=== PATIENT | female | born 1975 | race Caucasian/White ===

== ENCOUNTER 2016-06-16 15:47 | Outpatient (CLI) | payer BC | END 2016-06-16 15:48 | disposition home or self-care (01) | DX: Z13.1 Encounter for screening for diabetes mellitus (principal); N91.1 Secondary amenorrhea ==

== ENCOUNTER 2020-06-07 06:46 | Outpatient (CLI) | payer OTHER ==
--- NOTE | 2020-06-07 16:45 | Ultrasound Report ---
PROCEDURE: Pelvic w/Transvaginal INDICATIONS: ABDORMAL UTERINE BLEEDING TECHNIQUE: Real-time scanning was performed of the pelvic organs, with image documentation. Additional endovagi nal scanning was necessary due to incomplete visualization of the adnexal and endometrial structures by transabdominal scanning. COMPARISON: None. FINDINGS: No pathologic free abdominal or pelvic fluid. Uterus: Uterus is normal in size at 9.0 x 3.6 x 4.6 cm. The endometrium measures 11.8 mm in combine d thickness. There is a focus of mid fundal subserosal heterogeneous echogenicity measuring 14 x 13 x 9 mm. Ovaria n cysts are noted. Ovaries: Right ovary measures 4.3 x 3.4 x 2.8 cm, volume 21.4 cc. There is a focus of decreased echo genicity measuring 3.2 x 3.0 x 2.2 cm. Left ovary measures 2.1 x 2.0 x 1.8 cm, volume 4.0 cc. IMPRESSION: Focus of heterogeneous echogenicity within the uterus suggestive of fibroid. 2. Right ovarian simple cyst. Reviewed by: Marian Espinoza MD on 06/07/2020 4:43 PM PST Approved by: Marian Espinoza MD on 06/07/2020 4:43 PM PST Station ID: [id number]
== END 2020-06-07 06:47 | disposition home or self-care (01) ==
LOC: DI 06:46
PROVIDERS: ATTEND Nurse Practitioner Family
DX: N93.9 Abnormal uterine and vaginal bleeding, unspecified (principal); N83.291 Other ovarian cyst, right side

== ENCOUNTER 2020-06-24 08:00 | Outpatient (CLI) | payer OTHER ==
[2020-06-24 21:22] LABS: CHLAMYDIA TRACHOMATIS DNA NEGATIVE (NEGATIVE); NEISSERIA GONORRHOEAE DNA NEGATIVE (NEGATIVE); TRICHOMONAS VAGINALIS DNA NEGATIVE (NEGATIVE)
== END 2020-06-24 23:59 | disposition home or self-care (01) ==
LOC: LAB.R 08:00
PROVIDERS: ATTEND Obstetrics & Gynecology
DX: Z11.3 Encounter for screening for infections with a predominantly sexual mode of transmission (principal)
CPT/HCPCS: 87491; 87591; 87661

== ENCOUNTER 2022-11-21 09:25 | Day surgery (SDC) | payer OTHER ==
[2022-11-21] MEDS ORDERED: LACTATED RINGERS 1,000 ML IV ONE ×2 (09:29→11:45)
[2022-11-21 09:49] LABS: HCG UR QUAL NEGATIVE
[2022-11-21] MEDS ORDERED: HYDROmorphone 0.5 MG/0.5 ML SYRINGE IVP PRN ×2 (10:05→10:32)
[2022-11-21] MEDS ORDERED: ATROPINE ABBOJECT 1 MG/10 ML SYRINGE IVP PRN ×2 (10:05→10:32)
[2022-11-21] MEDS ORDERED: ONDANSETRON 4 MG/2 ML VIAL IVP PRN ×2 (10:05→10:32)
[2022-11-21] MEDS ORDERED: fentaNYL 100 MCG/2 ML VIAL IVP PRN ×2 (10:05→10:32)
[2022-11-21] MEDS ORDERED: NALOXONE 0.4 MG/ML VIAL IVP PRN ×2 (10:05→10:32)
[2022-11-21] MEDS ORDERED: MORPHINE 2 MG/ML CARPUJECT IVP PRN (10:05)
[2022-11-21] MEDS ORDERED: ACETAMINOPHEN 1,000 MG/100 ML 1,000 MG/100 ML BAG IV ONE (10:07)
--- NOTE | 2022-11-21 10:09 | HISTORY & PHYSICAL EXAMINATION ---
HPI - Admitted From Admitted from: Direct admit - History Obtained From Records Reviewed: Old records reviewed History obtained from: Patient Exam limitations: No limitations - History of Present Illness HPI Comment/Other: 46yo G0 with LMP 11/21/22 presenting for scheduled endometrial biopsy for heavy menstrual bleeding. She is scheduled for D&C, hysteroscopy, and endometrial abla tion for heavy menstrual bleeding. She changes pads at least every 2 hours during the day and 3h at night. They are heavy with flooding and she is passing clots. She did have a D&C, hysteroscopy with polypectomy 2020. Negative EMC 09/19/22. She also had Mirena IUD 2020 but removed it a few months later. PEL US 06/07/2020 with 9cm uterus, possible 1.4cm subserosal fibroid. TSH 2020 1.61. Normal Pap smear 07/2022. Denies history of blood transfusions or anesthesia reactions. PMH/PSH - Past Medical History Cardiovascular: positive: None Respiratory: positive: None Endocrine/Autoimmune: positive: None GI: positive: None : positive: None HEENT: positive: None Psych: positive: Claustrophobia Musculoskeletal: positive: None Derm: positive: None MRSA Hx?: No - Past Surgical History /[employer]: positive: Other (T&A, D&C polypectomy 2020) Social & Family Hx - Living Situation Living Arrangement: At home - Social History Substance Use and Type: Marijuana, CBD oil / Products - Family History Family History Comment/Other: Mother history melanoma Meds/Allgy - Home Medications Home Medications: Ambulatory Orders Medication Instructions Recorded Confirmed Ibuprofen [Motrin] 600 mg PO Q6H PRN 09/19/22 11/21/22 - Allergies Allergies/Adverse Reactions: Allergies Allergy/AdvReac Type Severity Reaction Status Date / Time latex Allergy Rash Verified 09/19/22 10:54 Exam - Vital Signs Reviewed Vital Signs: Yes Vital Signs: Vital Signs x48h Temp Pulse Resp BP Pulse Ox 11/21/22 09:36 97.2 F L 84 16 152/96 H 98 - Physical Exam General Appearance: positive: No acute distress Eyes Bilateral: positive: EOMI Respiratory: positive: No respiratory distress Abdomen: positive: Non-tender Skin: positive: Color nml Extremities: positive: Non-tender Neurologic/Psychiatric: positive: Oriented x3 Results - Lab Results Other Lab Results: Lab Results x24hrs 11/21/22 Range/Units 09:40 Urine HCG, Qual NEGATIVE Impression/Plan - Problem List Problem List: 46yo G0 with heavy menstrual bleeding - Scheduled for D&C hysteroscopy, endometrial ablation - Reviewed procedures, r/b/a and informed consent obtained - Follow up post op Ablation would be an outpatient procedure with 90% success rate and 30% amenorrhea rate. Goal with this procedure would be to decrease menstrual flow as opposed to achieving amenorrhea. She was counseled that there is an approximate 30% failure rate over 5 years requiring definitive treatment with hysterectomy. Ablation may not regulate the intervals of her bleeding but would likely lighten the amount. She was counseled on the need for contraception in women undergoing ablation. Risks of surgery were discussed including but not limited to risk of bleeding, infection, injury to nearby organs requiring repair (bladder, ureters, bowel, vasculature), deep venous thrombosis or . Risks of blood transfusion were also discussed including but not limited to transfusion reaction or transmission of HIV, Hepatitis B or C.
[2022-11-21] MEDS ORDERED: SILVER NITRATE APPLICATOR TOP ONE (10:10)
[2022-11-21] MEDS ORDERED: KETAMINE 200 MG/20 ML VIAL ONE (10:19)
[2022-11-21] MEDS ORDERED: fentaNYL 100 MCG/2 ML VIAL ONE ×2 (10:19→11:37)
[2022-11-21] MEDS ORDERED: MIDAZOLAM 2 MG/2 ML VIAL ONE (10:19)
[2022-11-21] MEDS ORDERED: PROPOFOL 500 MG/50 ML 500 MG/50 ML VIAL ONE (10:22)
[2022-11-21] MEDS ORDERED: LIDOCAINE 1%-EPI 1:100000 20 ML MDV ONE (10:24)
[2022-11-21] MEDS ORDERED: BUPIVACAINE 0.25% PF 30 ML VIAL ONE (10:24)
[2022-11-21] MEDS ORDERED: ePHEDrine 50 MG/ML VIAL IVP PRN (10:32)
--- NOTE | 2022-11-21 10:32 | ANESTHESIA ---
Pre-Anesthesia VS, & Labs - Diagnosis menorrhagia - Procedure hysteroscopy, myosure, d&c Vital Signs: Temp Pulse Resp BP Pulse Ox O2 Flow Rate 36.2 C L 84 16 152/96 H 98 11/21/22 09:36 11/21/22 09:36 11/21/22 09:36 11/21/22 09:36 11/21/22 09:36 Height: 5 ft 2 in Weight (kg): 89 kg Body Mass Index: 35.9 BMI Classification: Obese - NPO >8 hours - Is Patient ?: No - Lab Results Lab results reviewed: Yes Home Medications and Allergies Active Medications Atropine Sulfate (Atropine Abboject 1 Mg/10 Ml Syringe) 0.5 mg IVP Q5M PRN PRN Reason: Bradycardia Stop: 11/22/22 10:05 Fentanyl (Fentanyl 100 Mcg/2 Ml Vial) 25 - 50 mcg IVP Q5M PRN PRN Reason: BREAKTHROUGH PAIN (2nd Choice) Stop: 11/22/22 10:05 Hydromorphone HCl (Hydromorphone 0.5 Mg/0.5 Ml Syringe) 0.2 - 0.6 mg IVP Q5M PRN PRN Reason: PAIN (First Choice) Stop: 11/22/22 10:05 Lactated Ringer's (Lr) 1,000 mls @ 100 mls/hr IV .Q10H NASIMA Stop: 11/21/22 20:59 Morphine Sulfate (Morphine 2 Mg/Ml Carpuject) 2 - 4 mg IVP Q5M PRN PRN Reason: PAIN (3rd Choice) Stop: 11/22/22 10:05 Naloxone HCl (Naloxone 0.4 Mg/Ml Vial) 0.1 mg IVP Q2M PRN PRN Reason: RESP RATE <8 Stop: 11/22/22 10:05 Ondansetron HCl (Ondansetron 4 Mg/2 Ml Vial) 4 mg IVP ONCE PRN PRN Reason: N/V (First Choice) Stop: 11/22/22 10:05 Ibuprofen [Motrin] 600 mg PO Q6H PRN 09/19/22 Allergies/Adverse Reactions: Allergies Allergy/AdvReac Type Severity Reaction Status Date / Time latex Allergy Rash Verified 09/19/22 10:54 Anes History & Medical History - Anesthetic History Anesthesia Complications: reports: No previous complications Family history of Anesthesia Complications: Denies Family history of Malignant Hyperthermia: Denies - Medical History Cardiovascular: reports: None Pulmonary: reports: None Gastrointestinal: reports: None Urinary: reports: None Neuro: reports: None Musculoskeletal: reports: None Endocrine/Autoimmune: reports: None Skin: reports: None Smoking Status: Current every day smoker Psychosocial: reports: Cannabis - Surgical History Gynecologic: reports: Other (T&A, D&C polypectomy 2020) Exam General: Alert, Oriented x3, Cooperative Dental: WNL Mouth Openin Fingerbreadth Mallampati classification: II Thyromental Distance: 4-6 cm Respiratory: Lungs clear Cardiovascular: Regular rate Plan Anesthesia Type: General, MAC Consent for Procedure(s) Verified and Reviewed: Yes Code Status: Attempt Resuscitation ASA classification: 2-Mild systemic disease Is this case an emergency?: No
[2022-11-21] MEDS ORDERED: KETOROLAC 30 MG/ML VIAL ONE (10:39)
[2022-11-21] MEDS ORDERED: DEXAMETHASONE 4 MG/ML VIAL ONE (10:39)
[2022-11-21] MEDS ORDERED: LACTATED RINGERS 1,000 ML IV SCH ×2 (11:00)
--- NOTE | 2022-11-21 11:53 | OPERATIVE REPORT ---
Operative Report - General Procedure Date: 11/21/22 Planned Procedure: Dilation, curettage, hysteroscopy, endometrial ablation (NovaSure) Pre-Op Diagnosis: Heavy menstrual bleeding Procedure Performed: Dilation, curettage, hysteroscopy, endometrial ablation (NovaSure) Post Op Diagnosis: Heavy menstrual bleeding - Procedure Note Primary Surgeon: Betina Wesley DO Anesthesia Provider: Harley Ramon CRNA Pathology: Endometrial curettings Estimated Blood Loss (mL): 20 Urine Output (mL): 40 Indications: Heavy menstrual bleeding Findings: Normal appearing endometrium [place] visualized Uterus sounds to 9 Cervix measures 4.5cm Width 3.4cm Complications: None - Other Other Information/Narrative: Patient transported to OR, anesthesia obtained without difficulty. Placed in dorsal lithotomy position. Bladder emptied. Prepped and draped in sterile fashion. Speculum placed. Anterior lip of cervix grasped with single tooth tenaculum. Cervix length measured 4.5cm. Uterus sounded 9cm. Hegar dilators used up to 6mm to accomodate Myosure hysteroscope. Hysteroscope introduced and endometrium appears benign. Hysteroscope removed. NovaSure device inserted. Width of 3.4cm obtained. Novasure passed cavity integrity assessment. Length 4.5cm and width 3.4cm settings applied. Novasure activated. Run time 90 seconds. Novasure removed. Hysteroscope reintroduced and global ablation noted. Hysteroscope removed. Tenaculum removed. Hemostasis. Speculum removed. Tolerated procedures well. Counts correct x2. Transferred to PACU in stable condition.
[2022-11-21] MEDS ORDERED: traMADol 50 MG TABLET PO SCH (12:00)
[2022-11-21] MEDS ORDERED: traMADol 50 MG TABLET PO PRN (12:37)
[2022-11-21] MEDS ORDERED: traMADol 50 MG TABLET PO ONE (12:43)
[2022-11-21 12:47] VITALS: BP 140/92
--- NOTE | 2022-11-22 08:16 | ANESTHESIA POST OP EVALUATION ---
Anesthesia Post Eval - Post Anesthesia Eval Vitals: Last Vital Signs Temp 36.4 C L 11/21/22 12:35 Pulse 16 L 11/21/22 12:35 Resp 16 11/21/22 12:35 BP 140/92 H 11/21/22 12:35 Pulse Ox 98 11/21/22 12:35 O2 Flow Rate CV Function Including HR & BP: Stable Pain Control: Satisfactory Nausea & Vomiting: Negative Mental Status: Baseline Respiratory Status: Airway Patent Hydration Status: Satisfactory Anesthesia Complications: None
== END 2022-11-21 09:26 | disposition home or self-care (01) ==
LOC: SDS 09:25
PROVIDERS: ATTEND Obstetrics & Gynecology
PROC: 0U5B8ZZ Destruction of Endometrium, Via Natural or Artificial Opening Endoscopic (ICD-10-PCS; principal; 2022-11-21 10:45)
DX: N92.0 Excessive and frequent menstruation with regular cycle (principal); E66.9 Obesity, unspecified; F17.200 Nicotine dependence, unspecified, uncomplicated; Z32.02 Encounter for pregnancy test, result negative; Z68.35 Body mass index [BMI] 35.0-35.9, adult
CPT/HCPCS: 58563; 81025; A9270; J0131; J3490; J7120

== ENCOUNTER 2022-12-26 08:40 | Outpatient (CLI) | payer OTHER ==
--- NOTE | 2022-12-27 09:29 | Mammography Report ---
BILATERAL DIGITAL SCREENING MAMMOGRAM 3D/2D WITH ADDITIONAL VIEWS: 12/26/2022 CLINICAL: Routine screening. Baseline exam. Family history of breast cancer. No prior exams were available for comparison. There are scattered areas of fibroglandular density in both breasts (category b / 25%-50% glandular t issue). There is an irregular equal density asymmetry in the right breast at 7 o'clock posterior depth. No other significant masses, calcifications, or other findings are seen in either breast. IMPRESSION: INCOMPLETE: NEEDS ADDITIONAL IMAGING EVALUATION The irregular equal density asymmetry in the right breast is indeterminate. Additional views with po ssible ultrasound are recommended. Based on the Tyrer Cuzick model (a risk assessment model) the patients lifetime risk is 10.0% and he r 10 year risk is 2.0%. According to the ACR, ACS, and NCCN guidelines, an annual breast MRI exam germán ng with mammogram is recommended if the patients lifetime risk is 20% or greater. This exam was interpreted at Station ID: [id number]. NOTE: For mammograms, a report in lay terms will be sent to the patient. Approximately 15% of breast malignancies will not be visualized mammographically. In the management of a palpable breast mass, a negative mammogram must not discourage biopsy of a clinically suspicious lesion. Electronically Signed By: Lesia salcido/sage:12/26/2022 12:02:03 ACR BI-RADS Category 0: Incomplete 3340F PARENCHYMAL PATTERN: (A) - The breast(s) demonstrate(s) scattered fibroglandular densities. BI-RADS CATEGORY: (0) - 0 Mammo and [place] [id number] Immediate follow-up LATERALITY: (B)
== END 2022-12-26 08:41 | disposition home or self-care (01) ==
LOC: DI.S 08:40
PROVIDERS: ATTEND Obstetrics & Gynecology
DX: Z12.31 Encounter for screening mammogram for malignant neoplasm of breast (principal); Z80.3 Family history of malignant neoplasm of breast; R92.8 Other abnormal and inconclusive findings on diagnostic imaging of breast

== ENCOUNTER 2023-01-23 08:08 | Outpatient (CLI) | payer OTHER ==
[2023-01-23] MEDS ORDERED: LIDOCAINE 1%-EPI 1:100000 50 ML VIAL ONE (08:26)
[2023-01-23] MEDS ORDERED: LIDOCAINE-MPF 1% 5 ML VIAL ONE (08:27)
--- NOTE | 2023-01-24 13:25 | Mammography Report ---
UNILATERAL RIGHT DIGITAL DIAGNOSTIC MAMMOGRAM 3D/2D WITH ROLLED MEDIAL SPOT COMPRESSION: 01/23/2023 CLINICAL: Additional evaluation requested from prior study of right breast. Comparison is made to exams dated: 01/16/2023 mammogram and 12/26/2022 mammogram - [facility]. There are scattered areas of fibroglandular density in the right breast (category b / 25%-50% glandul ar tissue). The patient returned today for stereotactic guided biopsy for previously described irregular equal de nsity asymmetry in the right breast at 8 o'clock middle depth with possible architectural distortion. This was not seen on the prior ultrasound. The patient was imaged today and additional imaging of the right breast to include a slightly rolled view of the right breast in the craniocaudal projection does not confidently reproduce this finding to confidently target for biopsy. The biopsy was cancel led. No other significant masses or calcifications are seen in the breast. IMPRESSION: PROBABLY BENIGN The possible irregular equal density asymmetry in the right breast may represent fibroglandular tissu e and is probably benign. No definitively reproducible finding to target for biopsy today. A follow-up right mammogram and an ultrasound in 6 months is recommended to demonstrate stability. P atient was also given instructions to return sooner if development of any clinically suspicious findi ngs in the interim. Findings and recommendations were discussed with the patient by Dr. Fry during today's examination. Based on the Tyrer Cuzick model (a risk assessment model) the patients lifetime risk is 10.0% and he r 10 year risk is 2.0%. According to the ACR, ACS, and NCCN guidelines, an annual breast MRI exam germán ng with mammogram is recommended if the patients lifetime risk is 20% or greater. This exam was interpreted at Station ID: [id number]. NOTE: For mammograms, a report in lay terms will be sent to the patient. Approximately 15% of breast malignancies will not be visualized mammographically. In the management of a palpable breast mass, a negative mammogram must not discourage biopsy of a clinically suspicious lesion. Electronically Signed By: Thiago Fry M.D. aty/:01/24/2023 09:20:44 ACR BI-RADS Category 3: Probably benign 3343F PARENCHYMAL PATTERN: (A) - The breast(s) demonstrate(s) scattered fibroglandular densities. BI-RADS CATEGORY: (3) - 3 Mammo and [place] [id number] 6 month follow-up LATERALITY: (R)
== END 2023-01-23 08:09 | disposition home or self-care (01) ==
LOC: DI 08:08
PROVIDERS: ATTEND Obstetrics & Gynecology
DX: R92.8 Other abnormal and inconclusive findings on diagnostic imaging of breast (principal)